=== PATIENT | male | born 2000 | race Caucasian/White ===

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

== ENCOUNTER 2022-02-12 19:11 | Emergency (ER) | payer OTHER ==
[~2022-02-12] VITALS: Ht 172.7 cm; Wt 74.8 kg
[~2022-02-12 19:11] MED LIST: ACET-8386 PO; IBUP-2213 PO; ONDA-188 SL; TAMS0.4C97 PO
[2022-02-12 19:13] VITALS: BP 160/95
--- NOTE | 2022-02-12 19:15 | NUR ---
PT AMBULATED TO ED 8, PT C/O LUQ ABD PAIN X 30 MINS, PT HAS HX- KIDNEY STONES AND SAYS IT FEELS THE SAME. PT PLACED IN GOWN AND ON THE MONITOR, PT DENIES ANY OTHER MEDICAL HISTORYU, NKDA. URINE OBTAINED AND URINE DIP RESULTS PLACED IN CHART.
--- NOTE | 2022-02-12 19:29 | NUR ---
Dr. Layton examining patient.
--- NOTE | 2022-02-12 19:45 | NUR ---
PT AMBULATED TO RESTROOM WITH UPRIGHT STEADY GAIT.
[2022-02-12] MEDS ORDERED: NACL 0.9% 1,000 ML IV ONE (20:15)
[2022-02-12] MEDS ORDERED: KETOROLAC 30 MG/ML VIAL IVP ONE (20:15)
[2022-02-12] MEDS ORDERED: ACET-8386 PO (21:14)
[2022-02-12] MEDS ORDERED: ONDA8TAB87 PO (21:14)
[2022-02-12] MEDS ORDERED: IBUP-2213 PO (21:14)
[2022-02-12] MEDS ORDERED: TAMS0.4C96 PO (21:14)
[2022-02-12 21:50] VITALS: BP 126/70
--- NOTE | 2022-02-12 21:52 | NUR ---
Patient discharged with v/s stable. Written and verbal after care instructions given and explained. Patient alert, oriented and verbalized understanding of instructions. Ambulatory with steady gait. All questions addressed prior to discharge. ID band removed. Patient advised to follow up with PMD. Rx SENT TO PHARMACY. Patient educated on indication of medication including possible reaction and side effects. Opportunity to ask questions provided and answered.
== END 2022-02-12 21:52 | disposition home or self-care (01) ==
LOC: MED 19:11
DX: R10.9 Unspecified abdominal pain (principal); R11.2 Nausea with vomiting, unspecified; Z79.899 Other long term (current) drug therapy; Z87.442 Personal history of urinary calculi
CPT/HCPCS: 81002; 96361; 96374; 99283; J1885; J7030

== ENCOUNTER 2023-02-06 20:08 | Emergency (ER) | payer OTHER ==
[~2023-02-06] VITALS: Ht 162.6 cm; Wt 70.3 kg
[~2023-02-06 20:08] MED LIST changes: -ACET-8386 PO; +ACET-8905 PO; +ONDA8TAB87 PO; +TAMS0.4C96 PO
[2023-02-06 20:28] VITALS: BP 126/52; PULSE 154; RESP 16; TEMP 98.2; O2SAT 98
[2023-02-06] MEDS ORDERED: NACL 0.9% 1,000 ML IV ONE ×2 (20:30→22:30)
[2023-02-06 21:16] LABS: BASOPHILS % (AUTO) 0.1 % (0.0-2.0); EOSINOPHILS % (AUTO) 0.2 % (0.0-4.0); HEMATOCRIT 42.2 % (36-52); HEMOGLOBIN 14.2 g/dL (12.0-18.0); MEAN CORPUSCULAR HEMOGLOBIN 28 pg (27-31); MEAN CORPUSCULAR HGB CONC 34 g/dL (33-37); MEAN CORPUSCULAR VOLUME 82.8 fL (80-94); MONOCYTES # (AUTO) 0.7 K/uL (0.8-1.0); MONOCYTES % (AUTO) 6.9 % (1.7-9.3); NEUTROPHILS # (AUTO) 8.3 K/uL (1.8-7.7); NEUTROPHILS % (AUTO) 82.8 % (42.2-75.2); PLATELET COUNT (AUTO) 219 K/uL (140-450); RED BLOOD CELL COUNT(AUTO) 5.09 MIL/uL (4.20-6.10); RED CELL DISTRIBUTION WIDTH 13.6 % (11.6-13.7)
[2023-02-06 21:43] LABS: ALANINE AMINOTRANSFERASE 40 U/L (12-78); ALBUMIN 3.6 g/dL (3.4-5.0); ALCOHOL, BLOOD < 3 mg/dL (<10); ALKALINE PHOSPHATASE 164 U/L (50-136); ANION GAP 13.8 (8-16); ASPARTATE AMINOTRANSFERASE 19 U/L (15-37); CALCIUM 8.9 mg/dL (8.5-10.1); CARBON DIOXIDE 27.5 mmol/L (21-32); CHLORIDE 105 mmol/L (98-107); CREATININE 0.8 mg/dL (0.6-1.3); GFR ARICAN-AMERICAN 158 mL/min (>90); GFR NON ARICAN-AMERICAN 131 mL/min (>90); GLUCOSE 126 mg/dL (74-106); POTASSIUM 4.3 mmol/L (3.5-5.1); SODIUM SERUM 142 mmol/L (136-145); TOTAL BILIRUBIN 0.4 mg/dL (0.0-1.0); TOTAL PROTEIN, SERUM 6.7 g/dL (6.4-8.2); UREA NITROGEN, BLOOD 14 mg/dL (7-18)
[2023-02-06 21:44] LABS: SALICYLATE < 2.8 mg/dL (2.8-20.0)
[2023-02-06 21:49] LABS: ACETAMINOPHEN < 0.5 ug/ml (10-30)
[2023-02-06 22:13] LABS: APPEARANCE,URINE CLEAR (CLEAR); BILIRUBIN,URINE NEGATIVE (NEGATIVE); BLOOD, URINE NEGATIVE (NEGATIVE); COLOR,URINE YELLOW (YELLOW); LEUKOCYTE ESTERASE ,URINE NEGATIVE (NEGATIVE); NITRITE, URINE NEGATIVE (NEGATIVE); PROTEIN,URINE NEGATIVE (NEGATIVE); UGLUCOSE NEGATIVE (NEGATIVE); UROBILINOGEN,URINE 0.2 EU/dL (0.2 - 1)
[2023-02-06 22:21] LABS: AMPHETAMINE, URINE NEGATIVE ng/ml (NEG <=1000); BARBITURATE, URINE NEGATIVE ng/ml (NEG <=200); BENZODIAZEPINE, URINE NEGATIVE ng/mL (NEG <=200); CANNABINOID, URINE POSITIVE ng/mL (NEG <=50); COCAINE, URINE NEGATIVE ng/mL (NEG <=300); OPIATE, URINE NEGATIVE ng/mL (NEG <=2000); PHENCYCLIDINE SCREEN,URINE NEGATIVE ng/mL (NEG <=25)
[2023-02-06] MEDS ORDERED: LORazepam 2 MG/ML VIAL IVP ONE (23:10)
[2023-02-06 23:18] VITALS: O2SAT 97
[2023-02-06 23:31] VITALS: TEMP 98.2
[2023-02-07 06:27] VITALS: BP 112/59; PULSE 119; RESP 17; O2SAT 99
== END 2023-02-07 06:27 | disposition home or self-care (01) ==
LOC: MED 20:08
DX: F12.929 Cannabis use, unspecified with intoxication, unspecified (principal); Z79.899 Other long term (current) drug therapy
CPT/HCPCS: 36415; 70450; 80053; 80305; 81003; 84484; 85025; 85379; 93005; 96361; 96374; 99285; G0480; G0482; J2060; J7030

== ENCOUNTER 2023-02-09 17:11 | Emergency (ER) | payer OTHER ==
[~2023-02-09] VITALS: Ht 177.8 cm; Wt 70.8 kg
[2023-02-09 18:36] VITALS: BP 143/79; PULSE 110; RESP 18; TEMP 97.8; O2SAT 97
[2023-02-09] MEDS ORDERED: NALO4SPR NS (19:36)
== END 2023-02-09 19:53 | disposition home or self-care (01) ==
LOC: MED 17:11
DX: T40.414A Poisoning by fentanyl or fentanyl analogs, undetermined, initial encounter (principal); Z79.899 Other long term (current) drug therapy; Z79.1 Long term (current) use of non-steroidal anti-inflammatories (NSAID)
CPT/HCPCS: 99282

== ENCOUNTER 2023-02-19 20:29 | Emergency (ER) | payer OTHER ==
[~2023-02-19] VITALS: Ht 167.6 cm; Wt 68.0 kg
[2023-02-19 20:29] VITALS: BP 126/68; PULSE 121; RESP 18; TEMP 98; O2SAT 98
[~2023-02-19 20:29] MED LIST changes: +NALO4SPR NS
[2023-02-19 20:54] VITALS: BP 129/66; PULSE 130; RESP 17; TEMP 98.1; O2SAT 99
[2023-02-19] MEDS ORDERED: KETOROLAC 60 MG/2 ML VIAL IM ONE (21:10)
== END 2023-02-19 22:35 | disposition home or self-care (01) ==
LOC: MED 20:29
DX: S20.211A Contusion of right front wall of thorax, initial encounter (principal); Y08.89XA Assault by other specified means, initial encounter; Y93.89 Activity, other specified; Y92.89 Other specified places as the place of occurrence of the external cause; Y99.8 Other external cause status
CPT/HCPCS: 71101; 99283; J1885

== ENCOUNTER 2023-02-20 20:34 | Emergency (ER) | payer OTHER ==
[~2023-02-20] VITALS: Ht 182.9 cm; Wt 70.3 kg
[2023-02-20 21:00] VITALS: BP 116/60; PULSE 139; RESP 16; TEMP 97.4; O2SAT 100
[2023-02-20] MEDS ORDERED: LORazepam 2 MG/ML VIAL IVP ONE (21:20)
[2023-02-20] MEDS ORDERED: NACL 0.9% 1,000 ML IV ONE ×2 (21:20→22:50)
[2023-02-20 23:20] VITALS: BP 122/88; PULSE 120; RESP 16; TEMP 97.4; O2SAT 100
== END 2023-02-20 23:20 ==
LOC: MED 20:34
DX: Z02.89 Encounter for other administrative examinations (principal); R00.0 Tachycardia, unspecified; F12.90 Cannabis use, unspecified, uncomplicated; Z79.899 Other long term (current) drug therapy; Z79.1 Long term (current) use of non-steroidal anti-inflammatories (NSAID)
CPT/HCPCS: 93005; 96361; 96374; 99283; J2060; J7030

== ENCOUNTER 2023-04-15 21:27 | Emergency (ER) | payer OTHER ==
[~2023-04-15] VITALS: Ht 177.8 cm; Wt 72.6 kg
[2023-04-15 21:30] VITALS: BP 125/79; PULSE 128; RESP 16; TEMP 98.6; O2SAT 97
== END 2023-04-15 22:31 ==
LOC: MED 21:27
DX: Z02.89 Encounter for other administrative examinations (principal); R00.0 Tachycardia, unspecified; Z79.899 Other long term (current) drug therapy; Z79.1 Long term (current) use of non-steroidal anti-inflammatories (NSAID)
CPT/HCPCS: 99283

== ENCOUNTER 2023-12-09 16:40 | Inpatient (IN) | payer OTHER ==
[~2023-12-09] VITALS: Ht 177.8 cm; Wt 63.5 kg
[2023-12-09 16:52] VITALS: BP 125/56; PULSE 146; RESP 22; TEMP 98.4; O2SAT 96
[2023-12-09 18:28] LABS: BASOPHILS % (AUTO) 0.2 % (0.0-2.0); EOSINOPHILS % (AUTO) 0.1 % (0.0-4.0); HEMATOCRIT 45.4 % (36-52); HEMOGLOBIN 15.3 g/dL (12.0-18.0); LYMPHOCYTES # (AUTO) 0.8 K/uL (2.0-11.5); LYMPHOCYTES % (AUTO) 6.7 % (20.5-51.1); MEAN CORPUSCULAR HEMOGLOBIN 28 pg (27-31); MEAN CORPUSCULAR HGB CONC 34 g/dL (33-37); MEAN CORPUSCULAR VOLUME 84.1 fL (80-94); MONOCYTES # (AUTO) 1.4 K/uL (0.8-1.0); MONOCYTES % (AUTO) 11.7 % (1.7-9.3); NEUTROPHILS # (AUTO) 9.5 K/uL (1.8-7.7); NEUTROPHILS % (AUTO) 81.3 % (42.2-75.2); PLATELET COUNT (AUTO) 218 K/uL (140-450); RED CELL DISTRIBUTION WIDTH 13.1 % (11.6-13.7); WHITE BLOOD COUNT (AUTO) 11.7 K/uL (4.8-10.8)
[2023-12-09 18:54] LABS: AMPHETAMINE, URINE NEGATIVE ng/ml (NEG <=1000); BARBITURATE, URINE NEGATIVE ng/ml (NEG <=200); BENZODIAZEPINE, URINE NEGATIVE ng/mL (NEG <=200); CANNABINOID, URINE NEGATIVE ng/mL (NEG <=50); COCAINE, URINE NEGATIVE ng/mL (NEG <=300); OPIATE, URINE NEGATIVE ng/mL (NEG <=2000); PHENCYCLIDINE SCREEN,URINE NEGATIVE ng/mL (NEG <=25)
[2023-12-09 18:58] LABS: ANION GAP 14.4 (8-16); CALCIUM 9.1 mg/dL (8.5-10.1); CARBON DIOXIDE 25.5 mmol/L (21-32); CREATININE 0.9 mg/dL (0.6-1.3); POTASSIUM 3.9 mmol/L (3.5-5.1)
[2023-12-09 19:57] LABS: THYROID STIMULATING HORMONE < 0.01 uIU/mL (0.34-3.74)
[2023-12-09] MEDS: LORazepam 1 MG TAB PO ONE (20:49)
[2023-12-09] MEDS: NACL 0.9% 2,000 ML IV ONE (20:49)
[2023-12-09] MEDS ORDERED: ACETAMINOPHEN EXTRA STRENGTH 500 MG TAB ONE (20:50)
[2023-12-09] MEDS: ACETAMINOPHEN EXTRA STRENGTH 500 MG TAB PO ONE (20:53)
[2023-12-09] MEDS: PROPRANOLOL 1 MG/ML VIAL IVP ONE (21:14)
[2023-12-09] MEDS: propylthiouraciL 50 MG TAB PO ONE (21:19)
[2023-12-09] MEDS: methIMAzole 5 MG TAB PO STA (21:31)
[2023-12-09 22:25] LABS: FLU A ANTIGEN NEGATIVE (NEGATIVE); FLU B ANTIGEN NEGATIVE (NEGATIVE)
[2023-12-09] MEDS ORDERED: MAG SULF 2000 MG/WATER PREMIX 50 ML IV PRN (23:20)
[2023-12-09] MEDS ORDERED: MAGNESIUM OXIDE 400 MG TAB PO PRN (23:20)
[2023-12-09] MEDS ORDERED: MORPHINE SULFATE 4 MG/ML SYR IVP PRN (23:20)
[2023-12-09] MEDS ORDERED: POTASSIUM CHLORIDE 10 MEQ TABER PO PRN (23:20)
[2023-12-09] MEDS ORDERED: KCL 20 MEQ IN 100 mL PREMIX 200 ML IV PRN (23:20)
[2023-12-09] MEDS: NACL 0.9% 1,000 ML IV SCH (23:50)
[2023-12-10] MEDS: PROPRANOLOL 20 MG TAB PO SCH (00:32)
[2023-12-10] MEDS: methIMAzole 5 MG TAB PO SCH ×2 (00:57→12:36)
[2023-12-10] MEDS: ONDANSETRON 4 MG/2 ML VIAL IVP PRN (03:28)
[2023-12-10 07:32] LABS: BASOPHILS % (AUTO) 0.2 % (0.0-2.0); HEMATOCRIT 43.6 % (36-52); HEMOGLOBIN 14.8 g/dL (12.0-18.0); LYMPHOCYTES % (AUTO) 12.2 % (20.5-51.1); MEAN CORPUSCULAR HEMOGLOBIN 29 pg (27-31); MEAN CORPUSCULAR HGB CONC 34 g/dL (33-37); MEAN CORPUSCULAR VOLUME 84.2 fL (80-94); MONOCYTES # (AUTO) 1.4 K/uL (0.8-1.0); MONOCYTES % (AUTO) 17.3 % (1.7-9.3); NEUTROPHILS # (AUTO) 5.7 K/uL (1.8-7.7); NEUTROPHILS % (AUTO) 70.3 % (42.2-75.2); PLATELET COUNT (AUTO) 193 K/uL (140-450); RED BLOOD CELL COUNT(AUTO) 5.18 MIL/uL (4.20-6.10); RED CELL DISTRIBUTION WIDTH 13.5 % (11.6-13.7); WHITE BLOOD COUNT (AUTO) 8.1 K/uL (4.8-10.8)
[2023-12-10 08:02] LABS: ALBUMIN 3.5 g/dL (3.4-5.0); ANION GAP 13.4 (8-16); CALCIUM 8.9 mg/dL (8.5-10.1); CARBON DIOXIDE 25.9 mmol/L (21-32); CREATININE 0.8 mg/dL (0.6-1.3); MAGNESIUM 1.6 mg/dL (1.8-2.4); POTASSIUM 4.3 mmol/L (3.5-5.1); TOTAL BILIRUBIN 0.7 mg/dL (0.0-1.0); TOTAL PROTEIN, SERUM 6.8 g/dL (6.4-8.2)
[2023-12-10] MEDS: ACETAMINOPHEN 325 MG TAB PO PRN (09:55)
[2023-12-10] MEDS: DOCUSATE SODIUM 100 MG GELCAP PO SCH (09:55)
[2023-12-10 13:45] VITALS: TEMP 97.2
[2023-12-10 14:50] VITALS: PULSE 105; RESP 14; O2SAT 100
[2023-12-10 17:34] VITALS: PULSE 80
[2023-12-10] MEDS: HYDROcodone/APAP 5/325 MG 1 TAB TAB PO PRN (18:00)
[2023-12-10 18:09] VITALS: BP 127/55; PULSE 85; RESP 16
[2023-12-10] MEDS ORDERED: TAP5 PO (18:41)
[2023-12-10] MEDS ORDERED: PROP20TA29 PO (18:41)
[2023-12-10] MEDS ORDERED: MEDS-TO-BEDS MC SCH (21:00)
== END 2023-12-10 21:20 | disposition short-term general hospital (02) | DRG 115 ==
LOC: MED 16:40 → MTU 23:14
PROVIDERS: ADMIT Hospitalist; ATTEND Hospitalist
DX: S09.90XA Unspecified injury of head, initial encounter (principal); F07.81 Postconcussional syndrome; E05.90 Thyrotoxicosis, unspecified without thyrotoxic crisis or storm; F90.9 Attention-deficit hyperactivity disorder, unspecified type; W01.0XXA Fall on same level from slipping, tripping and stumbling without subsequent striking against object, initial encounter; Z20.822 Contact with and (suspected) exposure to COVID-19; Y93.89 Activity, other specified; Y92.89 Other specified places as the place of occurrence of the external cause; Y99.8 Other external cause status; Z79.899 Other long term (current) drug therapy
CPT/HCPCS: 36415; 70450; 71045; 76536; 80048; 80053; 80305; 83735; 84439; 84443; 84484; 85025; 93005; 96374; 96375; 99285; J1800; J2405; Q0092